=== PATIENT | female | born 1950 | race Hispanic/Latino ===

== ENCOUNTER → 2017-11-10 | Outpatient (CLI) | payer OTHER | END | disposition home or self-care (01) | LOC: RAH 10:05 | PROVIDERS: ATTEND Internal Medicine Gastroenterology | DX: R13.10 Dysphagia, unspecified (principal); R63.3 Feeding difficulties | CPT/HCPCS: 74230; 92611 ==

== ENCOUNTER → 2018-04-20 | Outpatient (CLI) | payer MEDICARE, OTHER ==
--- NOTE | 2018-04-20 11:53 | NUR ---
MBSS COMPLETED. +PENETRATION WITH THIN LIQUIDS VIA CUP SIP. RECOMMEND REGULAR TEXTURE, THIN LIQUIDS (VIA SPOON); PILLS WHOLE WITH LIQUIDS. PATIENT INFORMATION: Pt IS A 67 YEAR OLD FEMALE REFERRED FOR A REPEAT MBSS SECONDARY TO PARTICIPATION IN THERAPEUTIC INTERVENTION. COMPLAINS OF DIFFICULTY SWALLOWING. Pt AAOX3 AND SERVED THE PRIMARY INFORMANT FOR MEDICAL AND SOCIAL HISTORY. Pt REPORTS THAT SHE HAS BEEN ATTENDING SPEECH THERAPY FOR ABOUT 2 MONTHS TWICE TO 3 TIMES A WEEK. Pt HAS A PAST MEDICAL HISTORY SIGNIFICANT FOR HYPERTENSION, DIABETES MELLITUS, HYPERLIPIDEMIA, ARTHRITIS, GERD (TAKING NEXIUM DAILY), DIABETIC NEPHROPATHY, INCONTINENCE. MBSS INTERPRETATION: Pt PRESENT WITH MILD PHARYNGEAL DYSPHAGIA CAUSED BY MILDLY DECREASED TONGUE BASE RETRACTION AND DELAYED PHARYNGEAL RESPONSE TRIGGER RESULTING IN TRANSIENT PENETRATION WITH THIN LIQUIDS VIA CUP SIP WITH NO COUGH RESPONSE. COMPENSATORY STRATEGY OF CHIN TUCK ATTEMPTED: UNSUCCESSFUL; HEAD TURN TO BOTH SIDES: UNSUCCESSFUL. TRIALS: 1. TSP PUREED: GOOD 2. TSP PUDDING: GOOD 3. MIXED TEXTURE: GOOD 4. COOKIE: GOOD 5. THIN LIQUIDS VIA TSP: GOOD 6. THIN LIQUIDS VIA CUP SIP: TRANSIENT PENETRATION 7. THIN LIQUIDS VIA CUP SIP VOLUME CONTROL: TRANSIENT PENETRATION 8. NECTAR-THICK LIQUIDS VIA CUP SIP: GOOD 9. THIN LIQUIDS VIA CUP SIP CHIN TUCK: TRANSIENT PENETRATION 10. THIN LIQUIDS VIA CUP SIP HEAD TURN LEFT: SHALLOW PENETRATION 11. THIN LIQUIDS VIA CUP SIP HEAD TURN RIGHT: SHALLOW PENETRATION RECOMMENDATIONS: 1. REGULAR TEXTURE, THIN LIQUIDS; PILLS WHOLE WITH LIQUIDS. 2. COMPENSATORY STRATEGIES: *SEATED AT 90 DEGREES *NO STRAW *LIQUIDS VIA SPOON *SMALL BITES AND SIPS 3. SKILLED SPEECH THERAPY IS RECOMMENDED 2-3XWK TARGETING DYSPHAGIA. EDUCATIONS: FERRY OPERATOR EDUCATED Pt ON RISKS AND CONSEQUENCES OF ASPIRATION. Pt WAS PROVIDED WITH WRITTEN HANDOUTS OF RECOMMENDATIONS AND LARYNGEAL ELEVATION EXERCISES TO COMPLETE IN THE HOME WITH SKILLED SPEECH THERAPIST. ALL INFORMATION WAS PROVIDED IN Pt'S [place]AGE OF [place]. PT VERBALIZED UNDERSTANDING AND AGREEMENT WITH RECOMMENDATIONS. G-CODES SWALLOWING: [id number] Addendum: 04/20/18 at 1206 by FATEMEH MORGAN, SPT ST Amended: Links added.
== END | disposition home or self-care (01) ==
LOC: RAH 08:06
PROVIDERS: ATTEND Family Medicine
DX: R13.11 Dysphagia, oral phase (principal); K21.9 Gastro-esophageal reflux disease without esophagitis
CPT/HCPCS: G8996; G8997; G8998; 74230; 92611